=== PATIENT | female | born 1995 | race Caucasian/White ===

== ENCOUNTER 2018-12-25 23:47 | Emergency (ER) | payer MEDICAID ==
[~2018-12-25] VITALS: Ht 167.6 cm; Wt 83.3 kg
[2018-12-25 23:50] VITALS: BP 137/80
== END 2018-12-26 00:34 | disposition home or self-care (01) ==
LOC: ED 12-26 00:10
DX: N61.0 Mastitis without abscess (principal)
CPT/HCPCS: 99283

== ENCOUNTER 2020-08-20 22:43 | Emergency (ER) | payer MEDICAID ==
[~2020-08-20] VITALS: Ht 167.6 cm; Wt 70.4 kg
--- NOTE | 2020-08-20 22:50 | NUR ---
PATIENT BIB [facility]. NOT ANSWERING QUESTIONS. LETHARGIC/DROWSY, STUMBLING AROUND ROOM. NEED REDIRECTION AND CUING FOR REMOVING CLOTHING.
--- NOTE | 2020-08-20 23:11 | NUR ---
PATIENT BIB [facility].PATIENT CHANGED INTO HOSPITAL GOWN. 2 BAGS OF CLOTHES INCLUDING CELL PHONE PLACED IN SECURED LOCKED CABINET IN ER. SHE DOES NOT ANSWER QUESTIONS CONSISTENTLY OR AT ALL. SHE REPEATS "MY FACE FEELS LIKE AN ELEPHANT". 1:1 SITTER IN VIEW OF PATIENT FOR SAFETY
[2020-08-20 23:16] LABS: BASOPHILS % (AUTO) 1 % (0-1); EOSINOPHILS % (AUTO) 1 % (1-7); LYMPHOCYTES % (AUTO) 22 % (22-44); MEAN CORPUSCULAR HEMOGLOBIN 28.7 pg (27.0-34.8); MEAN PLATELET VOLUME 7.3 fL (7.4-10.4); MONOCYTES % (AUTO) 7 % (2-9); NEUTROPHILS % (AUTO) 69 % (42-75); PLATELET COUNT 340 x10^3/uL (130-400); RED CELL DISTRIBUTION WIDTH 13.1 % (9.6-15.2)
[2020-08-20 23:19] LABS: MD NO
[2020-08-20 23:27] LABS: ALANINE AMINOTRANSFERASE 24 U/L (12-78); ALBUMIN 3.5 g/dL (3.4-5.0); ANION GAP 11 mmol/L (5-15); CALCIUM 8.7 mg/dL (8.5-10.1); CHLORIDE 110 mmol/L (98-107)
[2020-08-20] MEDS ORDERED: SODIUM CHLORIDE FLUSH 10ML SYR IVF ONE (23:30)
[2020-08-20] MEDS ORDERED: SODIUM CHLORIDE 0.9% 1,000ML IVBOLUS ONE (23:30)
[2020-08-20 23:32] LABS: ALKALINE PHOSPHATASE 120 U/L (45-117); BILIRUBIN,TOTAL 0.3 mg/dL (0.2-1.0); CREATININE 0.62 mg/dL (0.55-1.02); TOTAL PROTEIN 7.4 g/dL (6.4-8.2)
[2020-08-20 23:42] LABS: SALICYLATE LEVEL < 1.7 mg/dL (2.8-20.0)
--- NOTE | 2020-08-21 00:19 | NUR ---
PATIENT'S SISTER, JOB, CALLED FOR UPDATE ON PATIENT AND ASKED IF THIS PATIETN WAS A PATIENT IN OUR ER. I SPOKE WITH ANOTHER RN ON POLICY ON THIS. I ASKED PATIENT IF IT WAS OKAY IF I GAVE JOB INFORMATION AND PATIENT KEPT CLEARING THROAT AND SAYING "[facility]" WHEN I ASKED IF I COULD GIVE JOB INFORMATION ON HOW SHE WAS DOING. PATIENT DID THIS ABOUT 10 TIMES BEFORE ANSWERING "YES" WHEN ASKED IF I COULD GIVE JOB INFORMATION ON IF SHE WAS OK. PATIENT DID NOT OPEN EYES DURING THIS INTERACTION. RESTLESS WITH VERBAL STIMULATION. JOB TOLD, BY THIS RN, THAT PATIENT WAS HERE AND THAT SHE WAS OK RIGHT NOW AND VS WERE STABLE AND THAT PATIENT IS SLEEPY AND WE ARE MONITORING HER AND THAT SHE IS WAITING TO BE SEEN BY A PSYCHIATRIC DOCTOR. NO FURTHER QUESTIONS ASKED.
--- NOTE | 2020-08-21 01:27 | NUR ---
PATIENT STRAIGHT CATH'D FOR URINE SPECIMEN. PATIENT EDUCATED ON PROCESS AND REASONING. EDGAR BROWN RN ASSISTED WITH THIS PROCEDURE PATIENT DOESNT CONSISTENTLY FOLLOW COMMANDS AND IMPORTANT TO MAINTAIN STERILITY. VS REMAIN STABLE SITTER IN VIEW OF PATIENT FOR SAFETY
--- NOTE | 2020-08-21 01:40 | NUR ---
report given to Geovanna Figueroa RN for break relief
--- NOTE | 2020-08-21 01:41 | NUR ---
Covering primary nurse for break. Pt sleeping, RR equal and unlabored. On court monitor, cont pulse ox. Rails up and sitter in line of site.
[2020-08-21 01:44] LABS: MICROSCOPIC INDICATED
[2020-08-21 01:50] LABS: AMPHETAMINE SCREEN, URINE Positive (Negative); BARBITURATE SCREEN, URINE Negative (Negative); BENZODIAZEPINE SCREEN, URINE Negative (Negative); CANNABINOID SCREEN, URINE Negative (Negative); COCAINE SCREEN, URINE Negative (Negative); METHADONE SCREEN, URINE Negative (Negative); OPIATE SCREEN, URINE Negative (Negative)
--- NOTE | 2020-08-21 02:18 | NUR ---
Pt attempting to climb out of bed, skin hot, HR 125 pt confused but redirectable. Report to NADEGE Pedroza
--- NOTE | 2020-08-21 02:25 | NUR ---
Discussed case with Denise YU and dr munoz, will start 2nd liter of NS wide open.
[2020-08-21] MEDS ORDERED: SODIUM CHLORIDE 0.9% 1,000ML IVBOLUS ONE (02:30)
--- NOTE | 2020-08-21 02:57 | NUR ---
patient resting in bed in NAD with eyes closed. safety maintained. sitter in view of patient.
--- NOTE | 2020-08-21 03:20 | NUR ---
patient sitting at edge of bed requesting to use bathroom. slightly unsteady on feet at first but steady gait to bathroom and back to room. patient A&Ox4 but remains drowsy. settled back into bed. call mckeon in reach. safety maintained. VS remain stable. sitter in view of patient
--- NOTE | 2020-08-21 04:20 | NUR ---
patient ambulated to bathroom with steady gait. ambulated back to bed and safety maintained. will continue to monitor. HR remains tachycardic
--- NOTE | 2020-08-21 04:49 | NUR ---
dr. munoz notified that patient's HR remains elevated in 110's-120's. maintenance fluids ordered and will be administered.
[2020-08-21] MEDS ORDERED: SODIUM CHLORIDE 0.9% 1,000 ML IV ONE (05:00)
--- NOTE | 2020-08-21 06:03 | NUR ---
Cierra accepts at [facility]. Accepting doctor, Dr. Cheung, ready to go to [facility] at 10am.
--- NOTE | 2020-08-21 06:13 | NUR ---
report given to Cierra at [facility]. she states that they currently do not have any open beds but will call after 10am when they have discharges and have an open bed.
--- NOTE | 2020-08-21 06:18 | NUR ---
report given to tabatha at [facility]. she states Dr. Rivera is accepting and they want her to leave [facility] at 0830 today.
--- NOTE | 2020-08-21 06:24 | NUR ---
Spoke with Kasey at [facility] as orignally it was stated that patient could go there at 10am and then in RN to RN report it was told to RN that patient could go to [facility] at 10am only if there was discharges, but those discharges were not confirmed and secondary to this and that patient was also accepted at we will send patient to . Accepting doctor at [facility]. Ready to go there at 8:30am. Will call [facility] as patient has medicaid hpn.
--- NOTE | 2020-08-21 06:29 | NUR ---
Spoke with Dilia at [facility] who states he arranged transport for 0830 this morning.
--- NOTE | 2020-08-21 06:53 | NUR ---
Spoke with Ramsey at [facility] and asked for transport at 0830. [facility] will wait for [facility] call but arrange for 0830
--- NOTE | 2020-08-21 07:01 | NUR ---
report given to Jonathan LIGHT
--- NOTE | 2020-08-21 07:12 | NUR ---
PT SLEEPING, SITTER PRESENT
--- NOTE | 2020-08-21 08:31 | NUR ---
[facility]. PT DC TO [facility].
[2020-08-21 08:32] VITALS: BP 115/77
== END 2020-08-21 08:35 | disposition home or self-care (01) ==
LOC: ED 23:30
DX: T14.91XA Suicide attempt, initial encounter (principal); T65.92XA Toxic effect of unspecified substance, intentional self-harm, initial encounter; F33.9 Major depressive disorder, recurrent, unspecified; R00.0 Tachycardia, unspecified; Y92.89 Other specified places as the place of occurrence of the external cause
CPT/HCPCS: 36415; 80053; 80299; 80307; 80320; 80329; 81001; 84703; 85025; 93005; 96360; 96361; 99285; J7030; G0480

== ENCOUNTER 2020-08-21 18:28 | Emergency (ER) | payer MEDICAID ==
[~2020-08-21] VITALS: Ht 167.6 cm; Wt 71.0 kg
--- NOTE | 2020-08-21 18:48 | NUR ---
REPORT RECIEVED FROM NADEGE HINSON. PT AMBULATED TO RESTROOM STEADY, NO OTHER NEEDS AT THIS TIME
[2020-08-21] MEDS ORDERED: LIDOCAINE-MPF 1%, 5ML ONE ×3 (19:05→19:11)
[2020-08-21] MEDS ORDERED: CEFAZOLIN 1,000 MG ONE (19:07)
--- NOTE | 2020-08-21 19:16 | NUR ---
erp at bedside for I and D
[2020-08-21] MEDS ORDERED: CEFAZOLIN 1,000 MG IM ONE (19:30)
[2020-08-21] MEDS ORDERED: LIDOCAINE-MPF 1%, 5ML INFIL ONE (19:30)
[2020-08-21] MEDS ORDERED: HYDROcodone/APAP 5/325 TABLET ONE (19:45)
[2020-08-21 19:50] VITALS: BP 121/86
[2020-08-21] MEDS ORDERED: HYDROcodone/APAP 5/325 TABLET PO ONE (20:00)
--- NOTE | 2020-08-21 20:04 | NUR ---
pt had I and D done, wound care provided, arm wrapped in gauze and packing in place from provider. d/c instructions given, and sitter from [facility] to take pt back to facility
== END 2020-08-21 20:11 | disposition home or self-care (01) ==
LOC: ED 19:30
DX: L02.414 Cutaneous abscess of left upper limb (principal); L03.114 Cellulitis of left upper limb
CPT/HCPCS: 10060; 96372; 99283; J0690